=== PATIENT | male | born 1970 | race Caucasian/White ===

== ENCOUNTER 2018-08-22 17:11 | Emergency (ER) | payer OTHER ==
[~2018-08-22] VITALS: Ht 188 cm; Wt 103.2 kg
[~2018-08-22 17:11] MED LIST: PRILOSEC 20MG20 MG PO
[2018-08-22 17:14] VITALS: TEMP 98.4
[2018-08-22 17:46] LABS: HEMOGLOBIN 11.6 g/dl (13.5-18.0); MEAN CELL VOLUME 87 fl (80.0-100.0); MEAN CORPUSCULAR HEMOGLOBIN 30 pg (27.0-31.0); MEAN CORPUSCULAR HGB CONC 35 g/dl (33.0-37.0); MEAN PLATELET VOLUME 10.6 fl (7.4-10.4); PLATELET COUNT 521 K/mm3 (130-400); RED BLOOD COUNT 3.86 M/mm3 (4.20-5.60); REDCELL DISTRIBUTION WIDTH-CV 18.6 % (11.5-14.5)
[2018-08-22 17:56] LABS: ALANINE AMINOTRANSFERASE 54 U/L (21-72); ALBUMIN 4.1 gm/dL (3.5-5.0); ALKALINE PHOSPHATASE 167 U/L (50-136); ANION GAP 11 mmol/L (7-16); AST,SGOT 64 U/L (15-37); BILIRUBIN,TOTAL 1.6 mg/dL (0.0-1.0); BLOOD UREA NITROGEN 20 mg/dL (9-20); CARBON DIOXIDE 26 mmol/L (22-30); CHLORIDE 100 mmol/L (98-107); CREATININE, serum 1.88 mg/dL (0.66-1.25); GLUCOSE 119 mg/dL (74-106); INR 1.5 (0.8-3.0); LIPASE 44 U/L (23-300); POTASSIUM 3.3 mmol/L (3.4-5.0); SODIUM 137 mmol/L (137-145)
[2018-08-22 17:59] LABS: HEMATOCRIT 33.6 % (42.0-52.0)
[2018-08-22 18:11] LABS: TROPONIN-I < 0.012 ng/mL (0.000-0.034)
[2018-08-22 18:41] LABS: BAND 14 % (0-10); EOSINOPHIL 2 % (0-4); LYMPHOCYTE 1 % (20.0-51.0); NEUTROPHILS 30 % (42.0-75.2); NUCLEATED RED BLOOD CELL 1 (0-6)
[2018-08-22 18:44] LABS: PLATELET ESTIMATE INCREASED (NORMAL)
[2018-08-22 18:45] LABS: ANISOCYTOSIS 1+; POLYCHROMASIA 1+
[2018-08-22 19:15] LABS: COLLECTION METHOD CLEAN CATCH
[2018-08-22 19:27] LABS: GRANULAR CAST >12 /lpf; HYALINE CAST >12 /lpf; MUCOUS Present /lpf; PH 5 (5-8); SQUAMOUS EPITHELIAL 0-2 /hpf; URINE APPEARANCE Cloudy; URINE BACTERIA None Seen /hpf; URINE BILIRUBIN Negative (NEGATIVE); URINE BLOOD Negative (NEGATIVE); URINE COLOR Amber; URINE GLUCOSE Negative (NEGATIVE); URINE KETONE Negative (NEGATIVE); URINE LEUKOCYTE ESTERASE Negative (NEGATIVE); URINE NITRATE Negative (NEGATIVE); URINE PROTEIN(semi-quant) 1+ (NEGATIVE); URINE RBC 0-2 /hpf; URINE UROBILINOGEN >=4.0 mg/dL (NEGATIVE)
[2018-08-22 20:15] VITALS: BP 134/73; PULSE 96
[2018-08-24 08:21] LABS: PATHOLOGY DIFF REVIEW OK +
== END 2018-08-22 20:55 | disposition short-term general hospital (02) ==
LOC: COL.ER 17:11
PROVIDERS: Emergency Medicine
DX: C93.00 Acute monoblastic/monocytic leukemia, not having achieved remission (principal); N17.9 Acute kidney failure, unspecified; E87.6 Hypokalemia; K21.9 Gastro-esophageal reflux disease without esophagitis; Z87.19 Personal history of other diseases of the digestive system; Z90.49 Acquired absence of other specified parts of digestive tract
CPT/HCPCS: J2543; J2765; J3010; J3370; J7030; J7050; J7120

== ENCOUNTER → 2020-05-02 | Outpatient (CLI) | payer OTHER | LOC: COL.RAD 07:25 | DX: C92.10 Chronic myeloid leukemia, BCR/ABL-positive, not having achieved remission (principal); K52.9 Noninfective gastroenteritis and colitis, unspecified | CPT/HCPCS: Q9967 ==

== ENCOUNTER 2020-05-12 06:14 | Day surgery (SDC) | payer OTHER ==
[~2020-05-12] VITALS: Ht 188 cm; Wt 113.7 kg
[2020-05-12 06:42] VITALS: BP 107/80; PULSE 85; TEMP 98.5
[2020-05-12] MEDS ORDERED: ZYLOPRIM 300MG300 MG PO (06:46)
[2020-05-12] MEDS ORDERED: SPRYCEL100 MG PO (06:47)
[2020-05-12] MEDS ORDERED: COMPAZINE 110 MG/TAB PO (06:47)
[2020-05-12] MEDS ORDERED: ZOFRAN 4MG T4 MG/TAB PO (06:47)
[2020-05-12] MEDS ORDERED: NEURONTIN300 MG/CAP PO (06:48)
[2020-05-12 08:10] VITALS: BP 131/80; PULSE 76; TEMP 97.8
[2020-05-12 08:15] VITALS: BP 113/92; PULSE 75
[2020-05-12 08:30] VITALS: BP 104/77; PULSE 75
[2020-05-12 08:45] VITALS: BP 127/76; PULSE 75
== END 2020-05-12 09:10 | disposition home or self-care (01) ==
LOC: SDCO 06:14
DX: D12.3 Benign neoplasm of transverse colon (principal); K62.89 Other specified diseases of anus and rectum; K29.80 Duodenitis without bleeding; K29.30 Chronic superficial gastritis without bleeding; C92.10 Chronic myeloid leukemia, BCR/ABL-positive, not having achieved remission; K52.9 Noninfective gastroenteritis and colitis, unspecified; K21.9 Gastro-esophageal reflux disease without esophagitis; G89.29 Other chronic pain; Z90.49 Acquired absence of other specified parts of digestive tract; Z20.828 Contact with and (suspected) exposure to other viral communicable diseases
CPT/HCPCS: J2405; J2704; J7030

== ENCOUNTER → 2020-06-05 | Outpatient (CLI) | payer OTHER ==
[~2020-06-05] MED LIST changes: +COMPAZINE 110 MG/TAB PO; +NEURONTIN300 MG/CAP PO; +SPRYCEL100 MG PO; +ZOFRAN 4MG T4 MG/TAB PO; +ZYLOPRIM 300MG300 MG PO
== END ==
LOC: COL.RAD 06:34
DX: C95.90 Leukemia, unspecified not having achieved remission (principal); R63.4 Abnormal weight loss; K62.89 Other specified diseases of anus and rectum; K52.9 Noninfective gastroenteritis and colitis, unspecified; R93.89 Abnormal findings on diagnostic imaging of other specified body structures
CPT/HCPCS: A9585

== ENCOUNTER → 2020-09-12 | Outpatient (CLI) | payer OTHER | LOC: COL.LAB 07:46 | DX: K52.9 Noninfective gastroenteritis and colitis, unspecified (principal); Z20.828 Contact with and (suspected) exposure to other viral communicable diseases ==

== ENCOUNTER → 2021-09-03 | Outpatient (CLI) | payer OTHER | LOC: COL.CARD 05:54 | DX: C92.10 Chronic myeloid leukemia, BCR/ABL-positive, not having achieved remission (principal) ==

== ENCOUNTER → 2022-11-29 | Outpatient (CLI) | payer OTHER ==
[~2022-11-29] VITALS: Ht 188 cm; Wt 122.3 kg
[~2022-11-29] MED LIST changes: +CEPHALEXIN500 M1 PO; +CYMBALTA 60MG60 MG PO; +NORCO 325 MG-51 TAB PO; +OXY IR5 MG PO; +REGLAN 10MG10 MG/TAB PO; +SCEMBLIX40 MG PO
[2022-11-29 11:01] VITALS: BP 171/95; PULSE 74; TEMP 97.8
[2022-11-29 12:50] VITALS: BP 171/111; PULSE 72
[2022-11-29 13:00] LABS: PLEURAL FLUID RBC 8000 /mm3 (0-0); PLEURAL FLUID WBC 2253 /mm3
[2022-11-29 13:11] LABS: PLEURAL FLUID APPEARANCE HAZY; PLEURAL FLUID COLOR AMBER
== END ==
LOC: COL.RAD 10:37
PROVIDERS: Internal Medicine
DX: J90 Pleural effusion, not elsewhere classified (principal); C92.10 Chronic myeloid leukemia, BCR/ABL-positive, not having achieved remission
CPT/HCPCS: 19804